=== PATIENT | female | born 1985 | race Caucasian/White ===

== ENCOUNTER 2016-10-18 07:00 | Emergency (ER) | payer MEDICAID ==
[~2016-10-18] VITALS: Ht 160 cm; Wt 68.0 kg
[2016-10-18 07:32] VITALS: BP 119/87
[2016-10-18 07:39] LABS: Urine Bilirubin Negative (Negative); Urine Color Yellow (Yellow); Urine Glucose Normal (Normal); Urine Ketone Negative (Negative); Urine Nitrite Negative (Negative); Urine RBC 477 /hpf (0 - 4); Urine Squamous Epithelial Cell MANY /hpf (<5); Urine WBC Clumps PRESENT /hpf (None Seen)
[2016-10-18] MEDS ORDERED: PHENAZOPYRIDINE HCL 100 MG TAB PO ONE (07:45)
[2016-10-18 07:52] LABS: Urine Blood 2+ /uL (Negative)
== END 2016-10-18 08:07 | disposition home or self-care (01) ==
LOC: ER 07:02
DX: N39.0 Urinary tract infection, site not specified (principal); F17.210 Nicotine dependence, cigarettes, uncomplicated; Z91.041 Radiographic dye allergy status
CPT/HCPCS: 81001